=== PATIENT | female | born 1985 | race Caucasian/White ===

== ENCOUNTER 2023-07-01 21:12 | Inpatient (IN) | payer MEDICAID ==
[~2023-07-01] VITALS: Ht 157.5 cm; Wt 79.4 kg
[2023-07-01] MEDS ORDERED: MORPHINE SULFATE 4 MG/ML CPJ (NOT FOR IM USE) IV STA (21:43)
[2023-07-01] MEDS ORDERED: KETOROLAC 30MG/ML VIAL IV STA (21:43)
[2023-07-01] MEDS ORDERED: ONDANSETRON HCL 4MG/2ML INJ IV STA (21:43)
[2023-07-01] MEDS ORDERED: SODIUM CHLORIDE 0.9% 1,000 ML IV ONE (21:45)
[2023-07-01 22:08] LABS: BASOPHILS % 0.6 % (0.0-2.0); EOSINOPHILS % 0.4 % (0.0-5.0); HEMATOCRIT. 38.3 % (36.0-48.0); HEMOGLOBIN. 13.2 g/dL (12.0-16.0); LYMPHOCYTES % 8.5 % (20.0-50.0); MEAN CORPUSCULAR HEMOGLOBIN 30.6 pg (28.0-32.0); MEAN CORPUSCULAR HGB CONC 34.3 g/dL (31.0-37.0); MEAN CORPUSCULAR VOLUME 89.1 fL (81.0-99.0); MEAN PLATELET VOLUME 9.1 fl (7.4-10.4); MONOCYTES % 4.3 % (2.0-8.0); NEUTROPHILS % 86.2 % (40.0-76.0); PLATELET 283 x1000/uL (130-400); RED CELL DISTRIBUTION WIDTH 13.1 % (11.6-14.6); WHITE BLOOD COUNT 12.3 x1000/uL (4.5-11.0)
[2023-07-01 22:23] LABS: ALANINE AMINOTRANSFERASE 78 IU/L (10-49); ALBUMIN 4.7 g/dL (3.2-4.8); ASPARTATE AMINOTRANSFERASE 127 IU/L (<34); BILIRUBIN TOTAL 0.6 mg/dL (0.1-1.0); CALCIUM 9.4 mg/dL (8.7-10.4); CARBON DIOXIDE 24 mEq/L (21-32); CHLORIDE 105 mEq/L (98-107); CREATININE 0.7 mg/dL (0.6-1.0); GLUCOSE 97 mg/dL (70-105); POTASSIUM 3.8 mEq/L (3.5-5.1); PROTEIN TOTAL 8.4 g/dL (6.0-8.3); SODIUM 138 mEq/L (136-145); UREA NITROGEN BLOOD 11 mg/dL (9-23)
[2023-07-01 22:33] LABS: HCG SCREEN NEGATIVE
[2023-07-01 22:35] LABS: CLARITY URINE CLEAR (CLEAR); COLOR URINE DARK YELLOW (YELLOW); GLUCOSE URINE NEGATIVE (NEGATIVE); KETONES URINE NEGATIVE (NEGATIVE); LEUKOCYTE ESTERASE URINE TRACE (NEGATIVE); NITRITE URINE NEGATIVE (NEGATIVE); OCCULT BLOOD URINE NEGATIVE (NEGATIVE); PROTEIN URINE NEGATIVE (NEGATIVE); SPECIFIC GRAVITY URINE 1.026 (1.005-1.030)
[2023-07-01 22:47] LABS: WBC URINE 0-2 /hpf (0-2)
[2023-07-01 22:48] LABS: BACTERIA URINE 1+; SQUAMOUS EPITHELIAL CELL URINE 2+ /lpf (RARE/1+)
[2023-07-01] MEDS ORDERED: CEFTRIAXONE 1GM PREMIX 50 ML IV ONE (23:30)
[2023-07-02] MEDS ORDERED: PANTOPRAZOLE SODIUM 40 MG/VIAL IV ONE (01:30)
[2023-07-02] MEDS ORDERED: LACTATED RINGERS 1,000 ML IV SCH (06:45)
[2023-07-02] MEDS ORDERED: METRONIDAZOLE 500 MG PREMIX 100 ML IV SCH (07:30)
[2023-07-02] MEDS ORDERED: CEFTRIAXONE 2GM/50ML (ADDEASE) 50 ML IV SCH (09:00)
[2023-07-02 09:19] LABS: PROTHROMBIN TIME 11.2 sec (9.6-11.0)
[2023-07-02] MEDS: PANTOPRAZOLE SODIUM 40 MG/VIAL IV SCH (11:00)
[2023-07-02] MEDS ORDERED: CEFTRIAXONE 2 G in DEXTROSE 5% WATER 50 ML IV SCH ×4 (12:00)
[2023-07-02 13:16] VITALS: BP 109/62; PULSE 64; RESP 18; TEMP 98.8
[2023-07-02] MEDS: METRONIDAZOLE 500 MG PREMIX 100 ML IV SCH ×2 (14:25→21:32)
[2023-07-02 16:00] VITALS: BP 90/62; PULSE 58; RESP 58; TEMP 97.9
[2023-07-02 20:00] VITALS: BP 107/65; PULSE 73; RESP 18; TEMP 98.1
[2023-07-02] MEDS ORDERED: MORPHINE SULFATE 2 MG/ML CPJ (NOT FOR IM USE) IV NR (20:00)
[2023-07-02] MEDS: DEXT 5%/LACTATED RINGERS 1,000 ML IV SCH (20:38)
[2023-07-02] MEDS ORDERED: DEXTROSE 50% WATER 50ML SYRINGE IV NR (20:45)
[2023-07-02] MEDS ORDERED: DEXT 5%/LACTATED RINGERS 1,000 ML IV SCH (20:45)
[2023-07-02 22:27] LABS: CREATINE KINASE 67 IU/L (34-145)
[2023-07-02 22:29] LABS: CREATINE KINASE MB FRACTION < 0.0 ng/mL (0.5-3.6); TROPONIN I HIGH SENSITIVITY < 4 ng/L (3.0-34)
[2023-07-03] VITALS: BP 116/68; PULSE 88; RESP 18; TEMP 97.7
[2023-07-03 04:00] VITALS: BP 94/55; PULSE 64; RESP 17; TEMP 96.6
[2023-07-03] MEDS: METRONIDAZOLE 500 MG PREMIX 100 ML IV SCH (05:11)
[2023-07-03] MEDS: DEXT 5%/LACTATED RINGERS 1,000 ML IV SCH (05:13)
[2023-07-03] MEDS ORDERED: MORPHINE SULFATE 2 MG/ML CPJ (NOT FOR IM USE) IV PRN (07:00)
[2023-07-03 07:09] LABS: BASOPHILS % 1.2 % (0.0-2.0); DIFFERENTIAL COMMENT 0; EOSINOPHILS % 2.9 % (0.0-5.0); HEMATOCRIT. 35.5 % (36.0-48.0); HEMOGLOBIN. 12.2 g/dL (12.0-16.0); LYMPHOCYTES % 31.6 % (20.0-50.0); MEAN CORPUSCULAR HEMOGLOBIN 30.7 pg (28.0-32.0); MEAN CORPUSCULAR HGB CONC 34.4 g/dL (31.0-37.0); MEAN CORPUSCULAR VOLUME 89.2 fL (81.0-99.0); MEAN PLATELET VOLUME 9.2 fl (7.4-10.4); MONOCYTES % 6.9 % (2.0-8.0); NEUTROPHILS % 57.4 % (40.0-76.0); PLATELET 240 x1000/uL (130-400); RED BLOOD CELL COUNT 3.98 mill/uL (4.2-5.4); RED CELL DISTRIBUTION WIDTH 13.1 % (11.6-14.6); WHITE BLOOD COUNT 4.8 x1000/uL (4.5-11.0)
[2023-07-03 07:15] LABS: ALANINE AMINOTRANSFERASE 130 IU/L (10-49); ALBUMIN 3.6 g/dL (3.2-4.8); ASPARTATE AMINOTRANSFERASE 73 IU/L (<34); BILIRUBIN TOTAL 0.5 mg/dL (0.1-1.0); CALCIUM 8.8 mg/dL (8.7-10.4); CARBON DIOXIDE 25 mEq/L (21-32); CHLORIDE 108 mEq/L (98-107); CHOLESTEROL 126 mg/dL (<200); CREATINE KINASE 58 IU/L (34-145); CREATININE 0.7 mg/dL (0.6-1.0); GLUCOSE 82 mg/dL (70-105); HDL CHOLESTEROL 45 mg/dL (>65); LDL CHOLESTEROL 64 mg/dL (5-100); POTASSIUM 4.3 mEq/L (3.5-5.1); PROTEIN TOTAL 6.6 g/dL (6.0-8.3); SODIUM 141 mEq/L (136-145); T4 FREE 1.09 ng/dL (0.89-1.76); THYROID STIMULATING HORMONE 2.17 uIU/mL (0.55-4.78); TRIGLYCERIDE 49 mg/dL (0-150); UREA NITROGEN BLOOD 8 mg/dL (9-23)
[2023-07-03 07:22] LABS: CREATINE KINASE MB FRACTION < 0.0 ng/mL (0.5-3.6); TROPONIN I HIGH SENSITIVITY < 4 ng/L (3.0-34)
[2023-07-03 08:00] VITALS: BP 104/66; PULSE 70; RESP 19; TEMP 97.9
[2023-07-03] MEDS: PANTOPRAZOLE SODIUM 40 MG/VIAL IV SCH (09:01)
[2023-07-03] MEDS ORDERED: METR-167 MT (11:13)
[2023-07-03 12:00] VITALS: BP 96/61; PULSE 68; RESP 20; TEMP 98.1
[2023-07-03 12:40] VITALS: BP 96/61; PULSE 68; TEMP 98.1; O2SAT 98
== END 2023-07-03 14:00 | disposition home or self-care (01) ==
LOC: ER 21:12 → 5WST 07-02 01:21 → 6EST 07-02 09:00
PROVIDERS: ADMIT Preventive Medicine Clinical Informatics; ATTEND Preventive Medicine Clinical Informatics
DX: K80.70 Calculus of gallbladder and bile duct without cholecystitis without obstruction (principal); D72.829 Elevated white blood cell count, unspecified; N39.0 Urinary tract infection, site not specified; R74.01 Elevation of levels of liver transaminase levels; Z79.899 Other long term (current) drug therapy
CPT/HCPCS: 36415; 74176; 74181; 76705; 80053; 80061; 81003; 82550; 82553; 82962; 84439; 84443; 84484; 84703; 85025; 99285; C9113; J0696; J1885; J2270; J2405; J3490; J7030; J7060; J7121